=== PATIENT | female | born 1940 | race Caucasian/White ===

== ENCOUNTER 2016-10-17 00:39 | Emergency (ER) | payer OTHER, MEDICAID ==
[2016-10-17 00:54] VITALS: BP 197/90
== END 2016-10-17 01:21 | disposition home or self-care (01) ==
LOC: ED 00:39
DX: H11.32 Conjunctival hemorrhage, left eye (principal); I16.0 Hypertensive urgency; E11.9 Type 2 diabetes mellitus without complications; Z79.4 Long term (current) use of insulin

== ENCOUNTER 2017-08-17 00:05 | Emergency (ER) | payer OTHER, MEDICAID ==
[~2017-08-17] VITALS: Ht 157.5 cm; Wt 64.5 kg
[2017-08-17 00:14] VITALS: Ht 157.5 cm; Wt 64.5 kg
[2017-08-17 01:47] LABS: BASOPHIL % 0.6 % (0-2); PLATELET COUNT 270 x10^3mcL (130-400)
[2017-08-17 01:52] LABS: RED CELL DISTRIBUTION WIDTH 16.2 % (11.5-14.5)
[2017-08-17 01:54] LABS: CALCIUM 8.8 mg/dL (8.5-10.1); CARBON DIOXIDE 21.6 mmol/L (21-32); CHLORIDE SERUM 111 mmol/L (98-107); CREATININE SERUM 1.4 mg/dL (0.6-1.0); GLUCOSE SERUM 123 mg/dL (74-106); POTASSIUM SERUM 4.9 mmol/L (3.5-5.1); SODIUM SERUM 142 mmol/L (136-145)
[2017-08-17 01:59] LABS: ALKALINE PHOSPHATASE 130 U/L (46-116); ALT/SGPT 31 U/L (14-59); AST/SGOT 24 U/L (15-37); BILIRUBIN TOTAL 0.19 mg/dL (0.20-1.00); TOTAL PROTEIN, SERUM 7.6 g/dL (6.4-8.2)
[2017-08-17 02:01] LABS: ALBUMIN 3.3 g/dL (3.4-5.0)
[2017-08-17 03:40] VITALS: BP 135/55
== END 2017-08-17 03:40 | disposition home or self-care (01) ==
LOC: ED 00:05
PROVIDERS: Emergency Medicine
DX: R60.0 Localized edema (principal); I10 Essential (primary) hypertension; E11.9 Type 2 diabetes mellitus without complications
CPT/HCPCS: 36415; 83880; Q0092